=== PATIENT | male | born 1990 | race Caucasian/White ===

== ENCOUNTER 2018-10-05 22:01 | Emergency (ER) | payer OTHER ==
[~2018-10-05] VITALS: Ht 182.9 cm; Wt 198.7 kg
[2018-10-05 22:23] VITALS: BP 123/71
--- NOTE | 2018-10-05 22:24 | NUR ---
TO BED #03 AMBULATORY, REPORT GIVEN TO JAZMIN NATION
--- NOTE | 2018-10-05 22:40 | NUR ---
BIB SELF WITH C/O RIGHT LOWER ABD PAIN THAT COMES AND GOES. CURRENTLY HAS NO REPORTED PAIN. ALSO STATES THAT HE HAS HAD PAIN IN HIS RECTUM WHEN POOPING WITH BRIGHT RED BLOOD ON TUESDAY. DENIES OTHER SYMPTOMS AT THIS TIME. AURELIANO MADE AWARE.
--- NOTE | 2018-10-05 23:02 | NUR ---
ermd at bedside.
[2018-10-05 23:18] VITALS: BP 127/70
--- NOTE | 2018-10-05 23:18 | NUR ---
Patient discharged with v/s stable. Written and verbal after care instructions given and explained. Patient alert, oriented and verbalized understanding of instructions. Ambulatory with steady gait. All questions addressed prior to discharge. ID band removed. Patient advised to follow up with PMD. Rx of COLACE, NORCO, MOTRIN given. Patient educated on indication of medication including possible reaction and side effects. Opportunity to ask questions provided and answered.
== END 2018-10-05 23:18 | disposition home or self-care (01) ==
LOC: MED 22:01
DX: R10.31 Right lower quadrant pain (principal)
CPT/HCPCS: 99283

== ENCOUNTER 2023-05-06 20:31 | Emergency (ER) | payer OTHER ==
[~2023-05-06] VITALS: Ht 182.9 cm; Wt 181.4 kg
[2023-05-06 20:45] VITALS: BP 133/72; PULSE 114; RESP 17; TEMP 98.2; O2SAT 100
[2023-05-06 21:49] LABS: FLU A ANTIGEN negative (NEGATIVE); FLU B ANTIGEN NEGATIVE (NEGATIVE)
[2023-05-06 23:29] LABS: BASOPHILS # (AUTO) 0.1 K/uL (0.00-0.22); EOSINOPHILS # (AUTO) 0.4 K/uL (0-0.4); EOSINOPHILS % (AUTO) 3.7 % (0.0-4.0); HEMATOCRIT 44.1 % (36-52); HEMOGLOBIN 14.5 g/dL (12.0-18.0); LYMPHOCYTES # (AUTO) 2.5 K/uL (2.0-11.5); LYMPHOCYTES % (AUTO) 21.2 % (20.5-51.1); MEAN CORPUSCULAR HEMOGLOBIN 28 pg (27-31); MEAN CORPUSCULAR HGB CONC 33 g/dL (33-37); MEAN CORPUSCULAR VOLUME 85.5 fL (80-94); MONOCYTES # (AUTO) 0.8 K/uL (0.8-1.0); MONOCYTES % (AUTO) 6.7 % (1.7-9.3); NEUTROPHILS # (AUTO) 7.8 K/uL (1.8-7.7); NEUTROPHILS % (AUTO) 67.4 % (42.2-75.2); PLATELET COUNT (AUTO) 303 K/uL (140-450); RED BLOOD CELL COUNT(AUTO) 5.16 MIL/uL (4.20-6.10); RED CELL DISTRIBUTION WIDTH 13.7 % (11.6-13.7); WHITE BLOOD COUNT (AUTO) 11.6 K/uL (4.8-10.8)
[2023-05-06 23:44] LABS: ALANINE AMINOTRANSFERASE 28 U/L (12-78); ALBUMIN 3.6 g/dL (3.4-5.0); ALKALINE PHOSPHATASE 103 U/L (50-136); ANION GAP 10.7 (8-16); ASPARTATE AMINOTRANSFERASE 21 U/L (15-37); CALCIUM 8.8 mg/dL (8.5-10.1); CARBON DIOXIDE 31.9 mmol/L (21-32); CHLORIDE 100 mmol/L (98-107); CREATININE 0.9 mg/dL (0.6-1.3); GFR ARICAN-AMERICAN 123 mL/min (>90); GFR NON ARICAN-AMERICAN 102 mL/min (>90); GLUCOSE 91 mg/dL (74-106); POTASSIUM 3.6 mmol/L (3.5-5.1); SODIUM SERUM 139 mmol/L (136-145); TOTAL BILIRUBIN 0.8 mg/dL (0.0-1.0); TOTAL PROTEIN, SERUM 8.4 g/dL (6.4-8.2); UREA NITROGEN, BLOOD 16 mg/dL (7-18)
[2023-05-07 01:45] VITALS: BP 119/79; PULSE 89; RESP 16; TEMP 98.2; O2SAT 100
== END 2023-05-07 01:45 | disposition home or self-care (01) ==
LOC: MED 20:31
DX: R07.9 Chest pain, unspecified (principal); Z20.822 Contact with and (suspected) exposure to COVID-19; Z79.899 Other long term (current) drug therapy
CPT/HCPCS: 36415; 71045; 80053; 84484; 85025; 93005; 99285